=== PATIENT | male | born 1985 | race Caucasian/White ===

== ENCOUNTER 2024-10-08 14:15 | Inpatient (IN) | payer OTHER ==
[2024-10-08 14:47] VITALS: BMI 31.3
[2024-10-08] MEDS ORDERED: POLYETHYLENE GLYCOL (HEALTHYLAX) 3350 17 GM PACKET PO PRN (17:53)
[2024-10-08] MEDS ORDERED: DOCUSATE SODIUM 100 MG CAPSULE (FP) PO PRN (17:53)
[2024-10-08] MEDS ORDERED: ACETAMINOPHEN 325 MG TABLET (FP) PO PRN (17:53)
[2024-10-08] MEDS ORDERED: NICOTINE POLACRILEX 2 MG LOZENGE BC PRN (17:53)
[2024-10-08] MEDS ORDERED: BENZOCAINE/MENTHOL (CHLORASEPTIC ) LOZENGE MM PRN (17:53)
[2024-10-08] MEDS ORDERED: BENZONATATE 200 MG CAPSULE PO PRN (17:53)
[2024-10-08] MEDS ORDERED: MAGNESIUM HYDROX 2400MG/30ML ORAL SUSPENSION 30 ML CUP PO PRN (17:53)
[2024-10-08] MEDS ORDERED: guaiFENesin 600 MG TABLET.ER (FP) PO PRN (17:53)
[2024-10-08] MEDS ORDERED: IBUPROFEN 400 MG TABLET (FP) PO PRN (17:53)
[2024-10-08] MEDS ORDERED: LOPERAMIDE HCL 2 MG CAPSULE PO PRN (17:53)
[2024-10-08] MEDS ORDERED: NALOXONE (NARCAN) HCL 4 MG/0.1 ML SPRAY NS PRN (17:53)
[2024-10-08] MEDS ORDERED: MAG HYDROX/AL HYDROX/SIMETH 30 ML UNIT-DOSE CUP PO PRN (17:53)
[2024-10-08] MEDS ORDERED: NICOTINE POLACRILEX 2 MG GUM BUC PRN (17:53)
[2024-10-08] MEDS ORDERED: P-EPHED 60MG/TRIPROLIDI 2.5MG TABLET PO PRN (17:53)
[2024-10-08] MEDS ORDERED: hydrOXYzine PAMOATE 25 MG CAPSULE (FP) PO PRN (17:53)
[2024-10-08] MEDS: THIAMINE 100 MG TABLET PO SCH (21:44)
[2024-10-08] MEDS: MELATONIN 5 MG TABLETS PO SCH (21:44)
[2024-10-08] MEDS: TUBERCULIN PPD 5 TU/0.1ML SYRINGE (IN PATIENT USE ONLY) ID ONE (21:45)
[2024-10-08] MEDS ORDERED: TUBERCULIN PPD 5 TU/0.1ML VIAL ID ONE (21:47)
[2024-10-09] MEDS ORDERED: methaDONE HCL 10 MG TABLET PO SCH (09:15)
[2024-10-09] MEDS: PRENATAL VITAMINS W/ FOLIC ACID TABLET (FP) PO SCH (09:30)
[2024-10-09 10:58] LABS: HEMATOCRIT 41.2 % (35.4-49); HEMOGLOBIN 13.2 GM/dL (11.7-16.9); MCH 28.2 pg (25.7-33.7); MCHC 32.1 g/dl (32.0-35.9); MEAN CELL VOLUME 87.8 fl (80-96); PLATELET COUNT 193 10^3/uL (134-434); RDW 14.7 % (11.9-15.9)
[2024-10-09 11:07] LABS: CALCIUM 8.9 mg/dL (8.5-10.1)
[2024-10-09 11:08] LABS: ALBUMIN 3.3 g/dl (3.4-5.0)
[2024-10-09 11:12] LABS: CREATININE 0.8 mg/dL (0.55-1.3)
[2024-10-09 11:13] LABS: BILIRUBIN,TOTAL 0.5 mg/dL (0.2-1); TOT PROT 6.7 g/dl (6.4-8.2)
[2024-10-09 14:36] LABS: URINE APPEARANCE CLEAR; URINE BILIRUBIN NEGATIVE (NEGATIVE); URINE COLOR YELLOW; URINE GLUCOSE (UA) NEGATIVE (NEGATIVE); URINE KETONE NEGATIVE (NEGATIVE); URINE LEUK ESTERASE NEGATIVE (NEGATIVE); URINE NITRITE NEGATIVE (NEGATIVE); URINE PROTEIN TRACE (NEGATIVE); URINE UROBILINOGEN 0.2 mg/dL (0.2-1.0)
[2024-10-09 17:42] LABS: SYPHILIS W/ RPR CONF NON-REACTIVE (NONREACTIVE)
[2024-10-11] MEDS ORDERED: DICYCLOMINE HCL 10 MG CAPSULE PO PRN (10:47)
[2024-10-11] MEDS ORDERED: guaiFENesin 600 MG TABLET.ER (FP) PO PRN (10:47)
[2024-10-11] MEDS ORDERED: ONDANSETRON *ODT* 4 MG TABLET SL PRN (10:47)
[2024-10-11] MEDS ORDERED: BENZONATATE 200 MG CAPSULE PO PRN (10:47)
[2024-10-11] MEDS ORDERED: BISMUTH SUBSALICYLATE 524 MG/30 ML PO PRN (10:47)
[2024-10-12] MEDS: methaDONE 40 MG, methaDONE 20 MG PO ONE (05:45)
[2024-10-12] MEDS ORDERED: methaDONE HCL 10 MG TABLET PO SCH (06:00)
[2024-10-12] MEDS ORDERED: methaDONE HCL 10 MG TABLET PO ONE (06:00)
[2024-10-13] MEDS ORDERED: methaDONE HCL 10 MG TABLET (FOR DETOX USE ONLY) PO ONE (06:00)
[2024-10-14] MEDS: methaDONE 40 MG, methaDONE 10 MG PO ONE (05:57)
[2024-10-14] MEDS ORDERED: methaDONE HCL 10 MG TABLET PO ONE (06:00)
[2024-10-15] MEDS ORDERED: methaDONE HCL 10 MG TABLET PO ONE (10:35)
[2024-10-16] MEDS: methaDONE HCL 40 MG DISPERSABLE TABLET PO ONE (05:35)
[2024-10-16] MEDS ORDERED: methaDONE HCL 10 MG TABLET PO ONE (06:00)
[2024-10-17] MEDS ORDERED: methaDONE HCL 10 MG TABLET PO ONE (10:37)
[2024-10-18] MEDS ORDERED: diazePAM 5 MG TABLET PO PRN (10:00)
[2024-10-18] MEDS ORDERED: methaDONE HCL 10 MG TABLET PO PRN (10:00)
[2024-10-18] MEDS ORDERED: BUPRENORPHINE HCL 150 MCG, BUPRENORPHINE HCL 75 MCG BC PRN ×2 (10:09→18:00)
[2024-10-18] MEDS ORDERED: BUPRENORPHINE HCL 75 MCG FILM BC ONE (10:25)
[2024-10-18] MEDS: BUPRENORPHINE HCL 150 MCG, BUPRENORPHINE HCL 75 MCG BC ONE ×2 (10:27→13:47)
[2024-10-18] MEDS: methaDONE HCL 10 MG TABLET PO ONE (10:27)
[2024-10-18] MEDS: cloNIDine HCL 0.1 MG TABLET PO ONE (10:28)
[2024-10-19] MEDS ORDERED: BUPRENORPHINE HCL 150 MCG, BUPRENORPHINE HCL 75 MCG BC PRN
[2024-10-19] MEDS: BUPRENORPHINE HCL 150 MCG, BUPRENORPHINE HCL 75 MCG BC SCH (05:49)
[2024-10-19] MEDS: IBUPROFEN 600 MG TABLET (FP) PO PRN (15:12)
[2024-10-19] MEDS: cloNIDine HCL 0.1 MG TABLET PO PRN (17:43)
[2024-10-20] MEDS: methaDONE HCL 10 MG TABLET PO ONE (06:03)
[2024-10-20] MEDS: BUPRENORPHINE HCL 450 MCG FILM BC SCH (06:04)
[2024-10-20] MEDS ORDERED: methaDONE HCL 10 MG TABLET PO ONE (10:00)
[2024-10-20] MEDS: BENZOCAINE 20 % GEL TUBE MM SCH (10:54)
[2024-10-20] MEDS: cloNIDine HCL 0.1 MG TABLET PO PRN (19:32)
[2024-10-21] MEDS: BUPRENORPHINE/NALOXONE 4 MG/1 MG FILM PACKET SL SCH (05:55)
[2024-10-22] MEDS: methaDONE HCL 10 MG TABLET PO ONE (05:53)
[2024-10-22] MEDS: BUPRENORPHINE/NALOXONE 8 MG/2 MG FILM PACKET SL SCH (05:54)
[2024-10-22] MEDS ORDERED: methaDONE HCL 10 MG TABLET PO ONE (10:00)
[2024-10-25] MEDS ORDERED: BENZOCAINE 20 % GEL TUBE MM PRN (09:34)
[2024-11-05 07:16] VITALS: BP 122/74; PULSE 76; RESP 18; TEMP 97.8
== END 2024-11-05 09:26 | disposition home or self-care (01) | DRG 772 ==
LOC: YASAS 14:15 → Y3W 20:07
PROVIDERS: ADMIT Psychiatry & Neurology Pain Medicine; ATTEND Psychiatry & Neurology Pain Medicine
PROC: HZ42ZZZ Group Counseling for Substance Abuse Treatment, Cognitive-Behavioral (ICD-10-PCS; principal; 2024-10-08)
DX: F10.20 Alcohol dependence, uncomplicated (principal); F17.210 Nicotine dependence, cigarettes, uncomplicated
CPT/HCPCS: 36415; 80053; 80305; 80307; 81003; 85027; 86780; 86803; 93005; 93010